=== PATIENT | female | born 1950 | race Caucasian/White ===

== ENCOUNTER 2017-08-25 06:12 | Inpatient (IN) | payer OTHER ==
[2017-08-21 11:35] VITALS: BMI 29.6
[2017-08-25] MEDS ORDERED: PROPOFOL 20 ML ONE ×8 (07:34→09:17)
[2017-08-25] MEDS ORDERED: fentaNYL CITRATE 250 MCG/5 ML VIAL ONE (07:34)
[2017-08-25] MEDS ORDERED: ROCURONIUM BROMIDE 50 MG/5 ML VIAL ONE (07:34)
[2017-08-25] MEDS ORDERED: ONDANSETRON 4 MG/2 ML VIAL ONE (07:34)
[2017-08-25] MEDS ORDERED: MIDAZOLAM HCL 2 MG/2 ML SINGLE DOSE VIAL ONE (07:34)
[2017-08-25] MEDS ORDERED: SUCCINYLCHOLINE CHLORIDE 200 MG/10 ML VIAL ONE (07:34)
[2017-08-25] MEDS ORDERED: LIDOCAINE HCL/PF 2% SDV 5ML VIAL ONE (07:34)
[2017-08-25] MEDS ORDERED: DEXAMETHASONE SOD PHOSPHATE 4 MG/1 ML VIAL ONE ×2 (07:34→08:42)
[2017-08-25] MEDS ORDERED: VANCOMYCIN 1,000 MG VIAL (RESTRICTED TO ID ONLY) IVPB ONE (08:00)
[2017-08-25] MEDS ORDERED: HEPARIN NA (PORCINE) 5,000 UNITS/ML 1ML VIAL ONE (08:00)
[2017-08-25] MEDS ORDERED: THROMBIN (BOVINE) 5,000 UNIT VIAL TP ONE (08:01)
[2017-08-25] MEDS ORDERED: VANCOMYCIN 1,000 MG VIAL (RESTRICTED TO ID ONLY) ONE (08:15)
[2017-08-25] MEDS ORDERED: TRANEXAMIC ACID 1000 MG/10 ML VIAL ONE (08:17)
[2017-08-25] MEDS ORDERED: ceFAZolin SODIUM 1 GM VIAL ONE ×2 (08:39→16:47)
[2017-08-25] MEDS ORDERED: ceFAZolin SODIUM 1 GM VIAL IVPB ONE (09:00)
[2017-08-25] MEDS ORDERED: ePHEDrine SULFATE 50 MG/1 ML AMPULE ONE (09:02)
[2017-08-25] MEDS ORDERED: BENZOIN/ALOE VERA/STORAX/TOLU 58 ML BOTTLE ONE (11:41)
[2017-08-25] MEDS ORDERED: ONDANSETRON 4 MG/2 ML VIAL IVPUSH PRN ×2 (12:14→12:19)
[2017-08-25] MEDS ORDERED: HYDROmorphone *PCA* 10MG/50ML DISP.SYRIN PCA SCH (12:15)
[2017-08-25] MEDS ORDERED: LACTATED RINGERS SOLUTION 1,000 ML IV SCH (12:15)
--- NOTE | 2017-08-25 12:17 | PN ---
Progress Note (short form) - Note Progress Note: 67F s/p C6 corpectomy, C5-C7 ACDF POD #0. -Pain control: as per anaesthesia team. -IV Abx: Ancef, Vancomycin x 24 hrs. post-op. -Mechanical DVT PPx. only: RADHA's, SCD's. -Incentive spirometry. -PT/OT/Rehab, OOB. -WBAT B/L LE. -Admit to ICU for airway monitoring. -Remove zabala catheter this evening. -Soft diet; advance as tolerated. -Care per medical hospitalist team. -Will follow. Ilya Lam MD (Orthopaedic Surgery).
--- NOTE | 2017-08-25 12:19 | OP ---
Operative Note - Note: Operative Date: 08/25/17 Pre-Operative Diagnosis: Cervical spinal stenosis C5-C7 Operation: 1. C6 corpectomy. 2. C5-C7 ACDF Post-Operative Diagnosis: Same as Pre-op Surgeon: Ilya Lam Fiber Design Engineer: Preston Lam (Co-Surgeon) Anesthesiologist/QUALITY RN: Kendal Mas Anesthesia: General Specimens Removed: C5-C6, C6-C7 disc Estimated Blood Loss (mls): 50 Fluid Volume Replaced (mls): 1,000 Operative Report Dictated: Yes
[2017-08-25] MEDS ORDERED: HYDROmorphone *PCA* 6MG/30ML DISP.SYRIN PCA ONE (12:20)
[2017-08-25] MEDS: ACETAMINOPHEN 1000 MG/100 ML VIAL (NON FORMULARY) IVPB SCH ×2 (12:40→21:44)
[2017-08-25] MEDS: LACTATED RINGERS SOLUTION 1,000 ML IV SCH ×2 (13:45→20:30)
[2017-08-25] MEDS ORDERED: HYDROmorphone *PCA* 6MG/30ML DISP.SYRIN PCA SCH (16:11)
[2017-08-25] MEDS: ceFAZolin 2 GRAM PREMIX BAG IVPB SCH (16:30)
[2017-08-25] MEDS ORDERED: VANCOMYCIN 1,000 MG in DEXTROSE 5%-WATER - 250 ML IVPB ONE (20:00)
[2017-08-25] MEDS ORDERED: VANCOMYCIN 1 GRAM (PRE-DOCKED) 1,000 MG/250 ML BAG IVPB ONE (20:00)
--- NOTE | 2017-08-25 20:02 | OP ---
DATE OF OPERATION: 08/25/2017 SURGEON: Ilya Lam MD CO-SURGEON: Preston Lam MD PREOPERATIVE DIAGNOSIS: C5-6, C6-7 disk prolapse with spinal stenosis across the entire C5, C6, C7 level with cervical spondylogenic radiculomyelopathy. POSTOPERATIVE DIAGNOSIS: C5-6, C6-7 disk prolapse with spinal stenosis across the entire C5, C6, C7 level with cervical spondylogenic radiculomyelopathy. OPERATION PERFORMED: 1. Corpectomy, C6. 2. Partial corpectomy, C5 and C7. 3. Insertion of cage called Pyramesh . 4. Anterior plating Precision Simplicity plate. 5. Anterior autologous bone grafting from same wound. 6. Anterior arthrodesis. 7. Use of biplane fluoroscopy and intraoperative neuromonitoring. ANESTHESIA: General. ANTIBIOTICS GIVEN: Kefzol 2 g, vancomycin 1 g, Decadron 10 mg given preoperative. Patient correctly identified, brought to the operating room, placed supine on the operating room table. Bolster placed behind the scapula transversely, papoose positioning of the patient. The neck was extended. Prior to extension of the neck, baseline motor-evoked and sensory-evoked potentials were performed, and positioning of the patient revealed no positional changes with the neck in extension. The skin was prepped, draped with Betadine scrub solution, wiped off with alcohol, and DuraPrep applied. A window drape applied. Incision was made at the level of the cricothyroid interval in the lines of Stacia. From the right-hand side, the platysma was transected into the space between the viscera and vessels, just lateral to the strap muscles with digital palpation readily bringing about easy palpation of the anterior vertebral structures. A bent 18-gauge pin was seated, bringing about accurate lateral radiographic correct level for surgery. A unipolar Bovie was used to stop anterior bone bed bleeding compliant with lifting the longus colli off the bone both the left and right-hand side. The appropriate C5-6 and C6-7 disks were removing excision of the annulus using a Bovie and then all disk material removed. Using a Matchstick pooja-tip misbah, troughs were cut into the bone bed at C6. This was taken all the way down to the level of the posterior longitudinal ligament and the bone harvested using Leksell rongeurs. All disk material was removed at C5- 6 and C6-7. The theca was seen in some parts, but the posterior longitudinal ligament was left in situ, but all disk material was removed, facilitating completely entire decompression. The endplates of C5 and C7 were squared off using the misbah to a flat surface. A Pyramesh cage was cut. This was a 13-mm diameter Pyramesh cage, packed with autologous bone. This was then tamped into the bone bed with solid press- fit fixation achieved, very satisfactory positioning as noted on the x-ray as well as clinically. A size 35-mm Precision Simplicity cage placed anteriorly, 2 screws into C5, 2 screws into C7. Prior to the insertion of these cages, it must be noted that the partial corpectomies at C5 and C7 facilitated a very easy decompression and complete freeing accordingly, thus completing C6 corpectomy and partial corpectomies at C5 and C7. Solid fixation achieved. The wounds were thoroughly lavaged. No complications. The wound was closed as follows: Investing layer of fascia and platysma with 2-0 Vicryl, the subcutaneous 3-0 Monocryl and Steri-Strips. Operation went well. No complications. MD MARIA GUADALUPE Anderson/[id number] TORRIE
--- NOTE | 2017-08-25 20:53 | CONSULT ---
Consult Consult Specialty:: Pulmonary critical care - History of Present Illness Chief Complaint: post op monitoring History of Present Illness: 67 yo female with h/o cervical spinal stenosis C5-C7, admitted to ICU post C6 corpectomy and C5-C7 ACDF. Estimated blood loss in OR 50cc, was given 1L fluids and given vanco and cefazolin in OR. Admitted to ICU for close monitoring , vitals stable on admission. Able to tolerate soft diet, pain well controlled with FOUNDRY MANAGER Active Medications Acetaminophen (Ofirmev Injection -) 1,000 mg IVPB Q8H [facility] Stop: 08/26/17 04:31 Last Admin: 08/25/17 12:40 Dose: 1,000 mg Cefazolin Sodium/Dextrose (Ancef 2 Gm Premixed Ivpb -) 2 gm IVPB Q8H [facility] Stop: 08/26/17 15:59 Last Admin: 08/25/17 16:30 Dose: 2 gm Fentanyl (Sublimaze Injection -) 50 mcg IVPUSH [id number] PRN PRN Reason: PAIN-PACU ORDER X 4 DOSES ONLY Last Admin: 08/25/17 12:25 Dose: 50 mcg Hydromorphone HCl (Dilaudid Dermatology Nurse Practitioner -) 6 mg FOUNDRY MANAGER FOUNDRY MANAGER RONEY PRN Reason: Protocol Stop: 08/28/17 12:14 Lactated Ringer's (Lactated Ringers Solution) 1,000 mls @ 83 mls/hr IV ASDIR [facility] Last Admin: 08/25/17 13:45 Dose: 500 mls Vancomycin HCl 1,000 mg/ (Dextrose) 250 mls @ 166.667 mls/hr IVPB ONCE ONE Stop: 08/25/17 21:29 Ondansetron HCl (Zofran Injection) 4 mg IVPUSH Q6H PRN PRN Reason: NAUSEA AND/OR VOMITING - Alcohol/Substance Use Hx Alcohol Use: No - Smoking History Smoking history: Former smoker Have you smoked in the past 12 months: No If you are a former smoker, when did you quit?: 50yrs ago Home Medications - Allergies Allergies/Adverse Reactions: Allergies Allergy/AdvReac Type Severity Reaction Status Date / Time No Known Drug Allergies Allergy Verified 08/25/17 07:15 - Home Medications Home Medications: Ambulatory Orders Atorvastatin Ca [Lipitor] 80 mg PO HS 08/21/17 Dulaglutide [Trulicity] 0.75 mg SQ WEEKLY 08/21/17 Physical Exam Vital Signs: Vital Signs Temperature 97.6 F 08/25/17 18:30 Pulse Rate 74 08/25/17 20:38 Respiratory Rate 14 08/25/17 20:38 Blood Pressure 126/54 08/25/17 20:38 O2 Sat by Pulse Oximetry (%) 100 08/25/17 20:28 Constitutional: Yes: No Distress Eyes: Yes: WNL Neck: Yes: Other (neck dressing c/d/i) Cardiovascular: Yes: Regular Rate and Rhythm Respiratory: Yes: Regular Gastrointestinal: Yes: WNL Edema: No Neurological: Yes: WNL Assessment/Plan 67 yo female with h/o cervical spinal stenosis C5-C7, admitted to ICU post C6 corpectomy and C5-C7 ACDF. -pain management with FOUNDRY MANAGER -antiemetics prn -soft diet, advance as tolerated -cont abx -maintenance fluids -IS -venodynes -no indication for GI ppx CASI Luong Critical Care time: 35 min
[2017-08-25] MEDS ORDERED: PT OWN MED DRAWER 7, Y5N ONE (21:19)
[2017-08-26] MEDS: ceFAZolin 2 GRAM PREMIX BAG IVPB SCH ×2 (01:08→07:43)
[2017-08-26 06:16] LABS: HEMATOCRIT 31.4 % (32.4-45.2); HEMOGLOBIN 10.7 GM/dL (10.7-15.3); MCH 27.6 pg (25.7-33.7); MCHC 34.2 g/dl (32.0-36.0); MEAN CELL VOLUME 80.7 fl (80-96); MEAN PLT VOLUME 9.7 fl (7.5-11.1); PLATELET COUNT 167 K/MM3 (134-434); RBC 3.89 M/mm3 (3.60-5.2); RDW 17.1 % (11.6-15.6); WHITE BLOOD COUNT 13.9 K/mm3 (4.0-10.0)
[2017-08-26] MEDS: ACETAMINOPHEN 1000 MG/100 ML VIAL (NON FORMULARY) IVPB SCH (06:19)
[2017-08-26 06:46] LABS: CALCIUM 8.1 mg/dL (8.5-10.1); CHLORIDE 110 mmol/L (98-107); POTASSIUM 4.3 mmol/L (3.5-5.1); SODIUM 144 mmol/L (136-145)
[2017-08-26 06:50] LABS: ANION GAP 5 (8-16); BLOOD UREA NITROGEN 11 mg/dL (7-18); CO2 29 mmol/L (21-32); CREATININE 0.5 mg/dL (0.55-1.02); GLUCOSE,RANDOM 88 mg/dL (74-106)
--- NOTE | 2017-08-26 12:29 | PN ---
Progress Note (short form) - Note Progress Note: Anesthesia POD#1 S/P ACDF C5-7 under GA and iv TRANSMISSIONS SYSTEMS OPERATOR VSS,pain is well controlled,no N/V,started oral food. Agreed to discontinue the TRANSMISSIONS SYSTEMS OPERATOR and take oral pain meds. A/P Discontinue the TRANSMISSIONS SYSTEMS OPERATOR ,oral pain meds are ordered. Katie Nicholson MD.
[2017-08-26] MEDS: oxyCODONE HCL 5 MG TABLET PO PRN ×2 (12:52→16:27)
--- NOTE | 2017-08-26 14:21 | PN ---
Teaching Attending Note Name of Resident: Marley Kauffman ATTENDING PHYSICIAN STATEMENT I saw and evaluated the patient. I reviewed the resident's note and discussed the case with the resident. I agree with the resident's findings and plan as documented. SUBJECTIVE: Patient seen and examined in the ICU. Awake and alert. Feels well. Minimal post-op discomfort. No CP or SOB. Intake & Output 08/23/17 08/24/17 08/25/17 08/26/17 23:59 23:59 23:59 23:59 Intake Total 1800 1196 Output Total 2375 1200 Balance -575 -4 Weight 178 lb Last Vital Signs Temp Pulse Resp BP Pulse Ox 98.7 F 72 18 96/78 100 08/26/17 09:58 08/26/17 09:58 08/26/17 09:58 08/26/17 09:58 08/26/17 07:46 Active Medications Cefazolin Sodium/Dextrose (Ancef 2 Gm Premixed Ivpb -) 2 gm IVPB Q8H [facility] Stop: 08/26/17 15:59 Last Admin: 08/26/17 07:43 Dose: 2 gm Fentanyl (Sublimaze Injection -) 50 mcg IVPUSH [id number] PRN PRN Reason: PAIN-PACU ORDER X 4 DOSES ONLY Last Admin: 08/25/17 12:25 Dose: 50 mcg Lactated Ringer's (Lactated Ringers Solution) 1,000 mls @ 83 mls/hr IV ASDIR RONEY Last Admin: 08/25/17 20:30 Dose: 83 mls/hr Ondansetron HCl (Zofran Injection) 4 mg IVPUSH Q6H PRN PRN Reason: NAUSEA AND/OR VOMITING Oxycodone HCl (Roxicodone -) 5 mg PO Q4H PRN PRN Reason: PAIN LEVEL 1-5 Stop: 08/27/17 12:33 Last Admin: 08/26/17 12:52 Dose: 5 mg Constitutional: Yes: Awake and alert, NAD Eyes: Yes: WNL Neck: Yes: neck dressing c/d/i Cardiovascular: Yes: Regular Rate and Rhythm Respiratory: Yes: Regular Gastrointestinal: Yes: WNL Edema: No Neurological: Yes: non-focal Laboratory Results - last 24 hr 08/26/17 08/26/17 05:35 05:35 WBC 13.9 H RBC 3.89 Hgb 10.7 Hct 31.4 L MCV 80.7 MCH 27.6 MCHC 34.2 RDW 17.1 H Plt Count 167 MPV 9.7 Sodium 144 Potassium 4.3 Chloride 110 H Carbon Dioxide 29 Anion Gap 5 L BUN 11 Creatinine 0.5 L Random Glucose 88 Calcium 8.1 L Assessment/Plan POD #1: C6 corpectomy and C5-C7 ACDF due to spinal stenosis -pain management -antiemetics prn -soft diet, advance as tolerated -Post op ABX -Incentive Spirometry -Mechanical VTE prophylaxis Dr Stauffer
--- NOTE | 2017-08-26 15:53 | PN ---
Physical Exam: SUBJECTIVE: Patient seen and examined in the ICU. AAOx3. Pt reports pain is controlled. Pt denies headache, nausea, vomiting, chest pain, sob, abdominal pain, fever, chills. Pt reports (+) flatus. Pt feels ready to go home. OBJECTIVE: Vital Signs Period Temp Pulse Resp BP Sys/Maloney Pulse Ox Last 24 Hr 97.6 F-98.7 F 56-109 11-22 96-155/50-98 100-100 GENERAL: The patient is awake, alert, and fully oriented, in no acute distress. HEAD: Normal with no signs of trauma. NECK: Trachea midline, full range of motion, supple. Surgical dressings to neck (posterior and Right anterior) CDI. LUNGS: Breath sounds equal, clear to auscultation bilaterally, no wheezes, no crackles, no accessory muscle use. HEART: Regular rate and rhythm, S1, S2 without murmur, rub or gallop. ABDOMEN: Soft, nontender, nondistended, normoactive bowel sounds, no guarding. EXTREMITIES: Warm, well-perfused, no edema. Right transmetatarsal amputation well healed. NEUROLOGICAL: Cranial nerves II through XII grossly intact. Normal speech, gait not observed. PSYCH: Normal mood, normal affect. SKIN: Warm, dry, normal turgor, no rashes or lesions noted Laboratory Results - last 24 hr 08/26/17 08/26/17 05:35 05:35 WBC 13.9 H RBC 3.89 Hgb 10.7 Hct 31.4 L MCV 80.7 MCH 27.6 MCHC 34.2 RDW 17.1 H Plt Count 167 MPV 9.7 Sodium 144 Potassium 4.3 Chloride 110 H Carbon Dioxide 29 Anion Gap 5 L BUN 11 Creatinine 0.5 L Random Glucose 88 Calcium 8.1 L Active Medications Generic Name Dose Route Start Last Admin Trade Name Freq PRN Reason Stop Dose Admin Cefazolin Sodium/Dextrose 2 gm 08/25/17 16:00 08/26/17 07:43 Ancef 2 Gm Premixed Ivpb - IVPB 08/26/17 15:59 2 gm Q8H RONEY Administration Fentanyl 50 mcg 08/25/17 12:22 08/25/17 12:25 Sublimaze Injection - IVPUSH 50 mcg [id number] PRN Administration PAIN-PACU ORDER X 4 DOSES ONLY Lactated Ringer's 1,000 mls @ 83 mls/hr 08/25/17 12:30 08/25/17 20:30 Lactated Ringers Solution IV 83 mls/hr ASDIR RONEY Administration Ondansetron HCl 4 mg 08/25/17 12:19 Zofran Injection IVPUSH Q6H PRN NAUSEA AND/OR VOMITING Oxycodone HCl 5 mg 08/26/17 12:34 08/26/17 12:52 Roxicodone - PO 08/27/17 12:33 5 mg Q4H PRN Administration PAIN LEVEL 1-5 ASSESSMENT/PLAN: 67F with PMH of spinal stenosis, hld, dm, presented for cervical spinal surgery. # cervical spinal stenosis - s/p C6 corpectomy, C5-C7 anterior cervical discectomy and fusion by Dr. Lam on 08/25/17 - POD #1 - post-op care per Dr. Lam - post-op antibiotics with IV Ancef - pain control with Dilaudid pump and Oxycodone prn - Zofran prn for nausea - incentive spirometry # FEN - Fluids: LR @ 83 ml/hr - Electrolytes: wnl, continue to monitor - Nutrition: soft diet # Prophylaxis - DVT ppx with leonor SCDs - deconditioning ppx with PT # dispo - pt medically stable for discharge home Visit type - Emergency Visit Emergency Visit: Yes ED Registration Date: 08/25/17 Care time: The patient presented to the Emergency Department on the above date and was hospitalized for further evaluation of their emergent condition. - New Patient This patient is new to me today: Yes Date on this admission: 08/26/17 - Critical Care Critical Care patient: Yes Total Critical Care Time (in minutes): 45 Critical Care Statement: The care of this patient involved high complexity decision making to prevent further life threatening deterioration of the patient 's condition and/or to evaluate & treat vital organ system(s) failure or risk of failure.
[2017-08-26 16:04] VITALS: PULSE 78
[2017-08-26 16:34] VITALS: BP 124/50
[2017-08-26 18:23] VITALS: TEMP 98
--- NOTE | 2017-08-27 15:08 | PATH ---
Surgical Pathology Report Patient Name: KEILA VARGAS [facility]. Rec. #: [id number] /Age/Gender: 1950 (Age: 67) / F Account: [id number] Location: [facility] PROJECT ADMIN Taken: 08/26/2017 Received: 08/26/2017 Reported: 08/27/2017 Physicians: Ilya Lam M.D. Specimen(s) Received DISC -C5-C6, C6-C7 DISC Clinical History Cervical disc disorder Final Diagnosis INTERVERTEBRAL DISC, C5-6 AND C6-7, PARTIAL EXCISION: PORTIONS OF INTERVERTEBRAL DISC, AND SMALL FRAGMENTS OF BONE. Electronically Signed Jonathan Ignacio M.D. Gross Description Received in formalin labeled "C5-C6, C6-C7 cervical disc," is a 3.0 x 2.2 x 0.3 cm aggregate of bernal fragments of fibrocartilaginous tissue. A community service representative portion is submitted in one cassette. /08/26/2017 saudi08/26/2017
== END 2017-08-26 06:30 | disposition home or self-care (01) | DRG 472 ==
LOC: JSAMEDAYSX 06:12 → EDSTATUS 08:00 → JICU 18:27
PROVIDERS: ADMIT Orthopaedic Surgery Orthopaedic Surgery of the Spine; ATTEND Orthopaedic Surgery Orthopaedic Surgery of the Spine
PROC: 0RB30ZZ Excision of Cervical Vertebral Disc, Open Approach (ICD-10-PCS; 2017-08-25)
PROC: 4A1104G Monitoring of Peripheral Nervous Electrical Activity, Intraoperative, Open Approach (ICD-10-PCS; 2017-08-25)
PROC: 0RG20A0 Fusion of 2 or more Cervical Vertebral Joints with Interbody Fusion Device, Anterior Approach, Anterior Column, Open Approach (ICD-10-PCS; principal; 2017-08-25 08:00)
DX: M48.02 Spinal stenosis, cervical region (principal); M47.12 Other spondylosis with myelopathy, cervical region; M50.022 Cervical disc disorder at C5-C6 level with myelopathy; M54.12 Radiculopathy, cervical region
CPT/HCPCS: 36415; 76000-TC-FY; 80048; 82962; 85027; 86850; 86900; 86901; 88304-TC; 94760; J0131; J1170; J1644